=== PATIENT | male | born 1995 | race Caucasian/White ===

== ENCOUNTER 2019-05-05 10:59 | Emergency (ER) | payer OTHER, SELFPAY ==
[2019-05-05 11:09] VITALS: BP 132/90; PULSE 80; RESP 14; TEMP 36.6; O2SAT 97
[2019-05-05] MEDS: TRIMETH/SULFA 160/800 (DS) TABLET 1 TAB PO (12:26)
[2019-05-05] MEDS: IBUPROFEN 400 MG TABLET 800 MG PO (12:26)
[2019-05-05] MEDS: BACITRACIN OINT 0.9 GM PCKT 1 APPLIC TOP (12:26)
[2019-05-05 12:31] VITALS: BP 123/57; PULSE 70; RESP 18; O2SAT 98
--- NOTE | 2019-05-06 01:04 | ED.SKABFB ---
HPI - Skin/Abscess/Foreign Bdy <GIL Schuler - Last Filed: 05/06/19 01:17> General Chief complaint: Skin/Abscess/Foreign Body Stated complaint: SCRATCHED HAND/SENT BY EMPLOYER Time Seen by Provider: 05/05/19 12:11 Source: patient Mode of arrival: ambulatory Limitations: no limitations History of Present Illness HPI narrative: This is a 23-year-old male, smoker, active [employer] [place] [employer] member presents with significant other with bilateral hand multiple superficial abrasions. Patient states he has a history of anxiety and with this he scratches is dorsal hands. The patient reports discomfort, swelling, redness bilateral hands. He denies fever/chills, nausea, vomiting. Patient attempted to be seen at medical this morning but there was no available openings for him and he was referred to emergency room. His tetanus immunization is up-to-date. He current knee sees a counselor for anxiety [facility]. Related Data Previous Rx's Medication Instructions Recorded sulfamethoxazole-trimethoprim 1 tab PO BID 5 Days #10 tab 05/05/19 Allergies Allergy/AdvReac Type Severity Reaction Status Date / Time No Known Drug Allergies Allergy Verified 05/05/19 11:11 Review of Systems <GIL Schuler - Last Filed: 05/06/19 01:17> Review of Systems ROS Unobtainable: All systems reviewed & are unremarkable except as noted in HPI and below PFSH <GIL Schuler - Last Filed: 05/06/19 01:17> Medical History Anxiety (Acute) History of wrist fracture (Chronic) Surgical History H/O wrist surgery (Chronic) Social History Smoking Status: Current every day smoker Social History Smoking Status: Current every day smoker Exam <GIL Schuler - Last Filed: 05/06/19 01:17> Narrative Exam Narrative: General appearance: well developed, well nourished, in no acute distress. Head: normocephalic, atraumatic, no scalp lesions, non-tender. Eye: pupil equal, round. EOMI. Nose: nares patent. Oral: mucosa moist. Neck/Thyroid: neck supple, full range of motion, no visible masses. Skin: no suspicious rashes over visible areas. Warm and dry. Heart: S1, S2 with RRR. no clubbing, no cyanosis, no edema. Lungs: Lung sounds clear to auscultate bilaterally. Breathing even and unlabored. No stridor. No accessory muscles used. Chest: normal shape and expansion. Abdomen: non-obese, non-distended. Neurologic: alert and oriented. 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 Psych: good eye contact, normal affect. Initial Vital Signs Initial Vital Signs: Vital Signs Temperature 97.9 F 05/05/19 11:09 Pulse Rate 80 05/05/19 11:09 Respiratory Rate 14 05/05/19 11:09 Blood Pressure 132/90 05/05/19 11:09 Pulse Oximetry 97 05/05/19 11:09 Extrem Right upper extremity: hand Details: abnormal to inspection, normal capillary refill, neuromotor exam normal, neurosensory exam normal, tendon exam normal, tenderness, vascular exam Details: radial pulse present and normal capillary refill, normal ROM of fingers, warmth, swelling (greater in R hand) and abrasion (multiple superficial) Location: of the dorsal hand Left upper extremity: hand Details: abnormal to inspection, normal capillary refill, neuromotor exam normal, neurosensory exam normal, tendon exam normal, tenderness, vascular exam Details: radial pulse present, normal ROM of fingers, warmth, swelling and abrasion <Nenita Thornton DO - Last Filed: 05/08/19 07:37> Initial Vital Signs Initial Vital Signs: Vital Signs Temperature 97.9 F 05/05/19 11:09 Pulse Rate 80 05/05/19 11:09 Respiratory Rate 14 05/05/19 11:09 Blood Pressure 132/90 05/05/19 11:09 Pulse Oximetry 97 05/05/19 11:09 Course <GIL Schuler - Last Filed: 05/06/19 01:17> Orders Ordered: Discontinued Medications Bacitracin (Bacitracin) 1 applic TOP NOW ONE Stop: 08/21/19 12:19 Last Admin: 05/05/19 12:26 Dose: 1 applic Ibuprofen (Advil) 800 mg PO NOW ONE Stop: 05/05/19 12:19 Last Admin: 05/05/19 12:26 Dose: 800 mg Trimethoprim/Sulfamethoxazole (Bactrim Ds) 1 tab PO NOW ONE Stop: 05/05/19 12:19 Last Admin: 05/05/19 12:26 Dose: 1 tab <Nenita Thornton DO - Last Filed: 05/08/19 07:37> Orders Ordered: Discontinued Medications Bacitracin (Bacitracin) 1 applic TOP NOW ONE Stop: 05/05/19 12:19 Last Admin: 05/05/19 12:26 Dose: 1 applic Ibuprofen (Advil) 800 mg PO NOW ONE Stop: 05/05/19 12:19 Last Admin: 05/05/19 12:26 Dose: 800 mg Trimethoprim/Sulfamethoxazole (Bactrim Ds) 1 tab PO NOW ONE Stop: 05/05/19 12:19 Last Admin: 05/05/19 12:26 Dose: 1 tab MDM - Skin/Abscess/Foreign Bdy <GIL Schuler - Last Filed: 05/06/19 01:17> Differential Diagnosis Likely cellulitis Medical Records Attestation: I reviewed the patient's medical records. MDM Narrative Medical decision making narrative: The patient's physical exam is consistent with cellulitis bilateral dorsum hand from multiple superficial abrasions. Right hand is worse with swelling and redness and has more scratch lake. Patient reports he scratches his hand when he is anxious. Patient was medicated with Bactrim DS hand DC to home with remaining duration. Patient was medicated with ibuprofen for pain. Patient advised to follow with his medical in 2-3 days for recheck his wound. Wound care was done prior DC to home with topical antibiotic medication after cleaned with Hibiclens. Return precautions were discussed with patient and patient agrees with treatment plan and no further questions were expressed. Patient advised to continue with counseling services. Discharge Plan Departure Patient Disposition: Home Clinical Impression: Cellulitis Qualifiers: Site of cellulitis: extremity Site of cellulitis of extremity: upper extremity Laterality: unspecified laterality Qualified Code(s): L03.119 - Cellulitis of unspecified part of limb Discharge Date/Time: 05/05/19 12:50 Interventions: ED Discharge Assessment Last Done: 05/05/19 12:50 Instructions: DI for Cellulitis -- Adult Activity Restrictions/Additional Instructions: You have been diagnosed with [cellulitis on bilateral dorsum aspect hand. Please keep the area clean and dry. You can continue to use [id number] antibiotic ointment. You are given 1st dose of antibiotic medication prior DC to home. Please continue seeking counseling service for the anxiety]. What to do: *Take your medications as directed. Please complete a course of antibiotic medication unless this gives you an allergic reaction. He can take [id number] Tylenol or Motrin as needed for pain. *Follow up with your primary care provider in 2-3 days, call for an appointment. Let them know you were seen in the ED and that we asked you to be seen in follow up. *Return to ED if you have any new, worsening, or concerning symptoms, such as [increasing pain, swelling, fever, warmth, redness, chest pain, breathing difficulty, unable to tolerate fluids, any acute concerns]. Prescriptions: New sulfamethoxazole-trimethoprim 800-160 mg tablet 1 tab PO BID 5 Days Qty: 10 RF: 0 Referrals: [facility] [Outside] <Nenita Thornton DO - Last Filed: 05/08/19 07:37> [place] ED Attending [place] Attestation: I was immediately available in the department for consultation. Documentation has been reviewed. I agree with assessment and plan.
--- NOTE | 2019-05-06 01:17 | ED_ITS ---
HPI - Skin/Abscess/Foreign Bdy <GIL Schuler - Last Filed: 05/06/19 01:17> General Chief complaint: Skin/Abscess/Foreign Body Stated complaint: SCRATCHED HAND/SENT BY EMPLOYER Time Seen by Provider: 05/05/19 12:11 Source: patient Mode of arrival: ambulatory Limitations: no limitations History of Present Illness HPI narrative: This is a 23-year-old male, smoker, active [place] member presents with significant other with bilateral hand multiple superficial abrasions. Patient states he has a history of anxiety and with this he scratches is dorsal hands. The patient reports discomfort, swelling, redness bilateral hands. He denies fever/chills, nausea, vomiting. Patient attempted to be seen at medical this morning but there was no available openings for him and he was referred to emergency room. His tetanus immunization is up-to-date. He current knee sees a counselor for anxiety [facility]. Related Data Previous Rx's Medication Instructions Recorded sulfamethoxazole-trimethoprim 1 tab PO BID 5 Days #10 tab 05/05/19 Allergies Allergy/AdvReac Type Severity Reaction Status Date / Time No Known Drug Allergies Allergy Verified 05/05/19 11:11 Review of Systems <GIL Schuler - Last Filed: 05/06/19 01:17> Review of Systems ROS Unobtainable: All systems reviewed & are unremarkable except as noted in HPI and below PFSH <GIL Schuler - Last Filed: 05/06/19 01:17> Medical History Anxiety (Acute) History of wrist fracture (Chronic) Surgical History H/O wrist surgery (Chronic) Social History Smoking Status: Current every day smoker Social History Smoking Status: Current every day smoker Exam <GIL Schuler - Last Filed: 05/06/19 01:17> Narrative Exam Narrative: General appearance: well developed, well nourished, in no acute distress. Head: normocephalic, atraumatic, no scalp lesions, non-tender. Eye: pupil equal, round. EOMI. Nose: nares patent. Oral: mucosa moist. Neck/Thyroid: neck supple, full range of motion, no visible masses. Skin: no suspicious rashes over visible areas. Warm and dry. Heart: S1, S2 with RRR. no clubbing, no cyanosis, no edema. Lungs: Lung sounds clear to auscultate bilaterally. Breathing even and unlabored. No stridor. No accessory muscles used. Chest: normal shape and expansion. Abdomen: non-obese, non-distended. Neurologic: alert and oriented. 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 Psych: good eye contact, normal affect. Initial Vital Signs Initial Vital Signs: Vital Signs Temperature 97.9 F 05/05/19 11:09 Pulse Rate 80 05/05/19 11:09 Respiratory Rate 14 05/05/19 11:09 Blood Pressure 132/90 05/05/19 11:09 Pulse Oximetry 97 05/05/19 11:09 Extrem Right upper extremity: hand Details: abnormal to inspection, normal capillary refill, neuromotor exam normal, neurosensory exam normal, tendon exam normal, tenderness, vascular exam Details: radial pulse present and normal capillary refill, normal ROM of fingers, warmth, swelling (greater in R hand) and abrasion (multiple superficial) Location: of the dorsal hand Left upper extremity: hand Details: abnormal to inspection, normal capillary refill, neuromotor exam normal, neurosensory exam normal, tendon exam normal, tenderness, vascular exam Details: radial pulse present, normal ROM of fingers, warmth, swelling and abrasion <Nenita Thornton DO - Last Filed: 05/08/19 07:37> Initial Vital Signs Initial Vital Signs: Vital Signs Temperature 97.9 F 05/05/19 11:09 Pulse Rate 80 05/05/19 11:09 Respiratory Rate 14 05/05/19 11:09 Blood Pressure 132/90 05/05/19 11:09 Pulse Oximetry 97 05/05/19 11:09 Course <GIL Schuler - Last Filed: 05/06/19 01:17> Orders Ordered: Discontinued Medications Bacitracin (Bacitracin) 1 applic TOP NOW ONE Stop: 08/21/19 12:19 Last Admin: 05/05/19 12:26 Dose: 1 applic Ibuprofen (Advil) 800 mg PO NOW ONE Stop: 05/05/19 12:19 Last Admin: 05/05/19 12:26 Dose: 800 mg Trimethoprim/Sulfamethoxazole (Bactrim Ds) 1 tab PO NOW ONE Stop: 05/05/19 12:19 Last Admin: 05/05/19 12:26 Dose: 1 tab <Nenita Thornton DO - Last Filed: 05/08/19 07:37> Orders Ordered: Discontinued Medications Bacitracin (Bacitracin) 1 applic TOP NOW ONE Stop: 05/05/19 12:19 Last Admin: 05/05/19 12:26 Dose: 1 applic Ibuprofen (Advil) 800 mg PO NOW ONE Stop: 05/05/19 12:19 Last Admin: 05/05/19 12:26 Dose: 800 mg Trimethoprim/Sulfamethoxazole (Bactrim Ds) 1 tab PO NOW ONE Stop: 05/05/19 12:19 Last Admin: 05/05/19 12:26 Dose: 1 tab MDM - Skin/Abscess/Foreign Bdy <GIL Schuler - Last Filed: 05/06/19 01:17> Differential Diagnosis Likely cellulitis Medical Records Attestation: I reviewed the patient's medical records. MDM Narrative Medical decision making narrative: The patient's physical exam is consistent with cellulitis bilateral dorsum hand from multiple superficial abrasions. Right hand is worse with swelling and redness and has more scratch lake. Patient reports he scratches his hand when he is anxious. Patient was medicated with Bactrim DS hand DC to home with remaining duration. Patient was medicated with ibuprofen for pain. Patient advised to follow with his medical in 2-3 days for recheck his wound. Wound care was done prior DC to home with topical antibiotic medication after cleaned with Hibiclens. Return precautions were discussed with patient and patient agrees with treatment plan and no further questions were expressed. Patient advised to continue with counseling services. Discharge Plan Departure Patient Disposition: Home Clinical Impression: Cellulitis Qualifiers: Site of cellulitis: extremity Site of cellulitis of extremity: upper extremity Laterality: unspecified laterality Qualified Code(s): L03.119 - Cellulitis of unspecified part of limb Discharge Date/Time: 05/05/19 12:50 Interventions: ED Discharge Assessment Last Done: 05/05/19 12:50 Instructions: DI for Cellulitis -- Adult Activity Restrictions/Additional Instructions: You have been diagnosed with [cellulitis on bilateral dorsum aspect hand. Please keep the area clean and dry. You can continue to use [id number] antibiotic ointment. You are given 1st dose of antibiotic medication prior DC to home. Please continue seeking counseling service for the anxiety]. What to do: *Take your medications as directed. Please complete a course of antibiotic medication unless this gives you an allergic reaction. He can take [id number]-[id number] Tylenol or Motrin as needed for pain. *Follow up with your primary care provider in 2-3 days, call for an appointment. Let them know you were seen in the ED and that we asked you to be seen in follow up. *Return to ED if you have any new, worsening, or concerning symptoms, such as [increasing pain, swelling, fever, warmth, redness, chest pain, breathing difficulty, unable to tolerate fluids, any acute concerns]. Prescriptions: New sulfamethoxazole-trimethoprim 800-160 mg tablet 1 tab PO BID 5 Days Qty: 10 RF: 0 Referrals: [facility] [Outside] <Nenita Thornton DO - Last Filed: 05/08/19 07:37> [place] ED Attending Zenobia Attestation: I was immediately available in the department for consultation. Documentation has been reviewed. I agree with assessment and plan.
== END 2019-05-05 12:50 | disposition home or self-care (01) ==
PROVIDERS: Emergency Provider Nurse Practitioner Family
DX: L03.113 Cellulitis of right upper limb (principal); L03.114 Cellulitis of left upper limb
CPT/HCPCS: 99282; 99283

== ENCOUNTER 2019-10-06 14:50 | Emergency (ER) | payer OTHER, SELFPAY ==
[2019-10-06 15:00] VITALS: BP 144/98; PULSE 81; RESP 16; TEMP 36.5; O2SAT 98
--- NOTE | 2019-10-06 15:02 | DI.RAD.S_ITS ---
PROCEDURE: XR SHOULDER RT MIN 2V INDICATIONS: pain/decreased rom no recent injury TECHNIQUE: A set of 3 views of the shoulder were acquired. COMPARISON: None. FINDINGS: Bones: No fractures or dislocations. No suspicious bony lesions. Visualized ribs appear intact. Soft tissues: No suspicious soft tissue calcifications. IMPRESSION: Normal for age, source of current pain symptoms is not seen. Dictated by: Naveed Nj M.D. on 10/06/2019 at 15:31 Approved by: Naveed Nj M.D. on 10/06/2019 at 15:31
--- NOTE | 2019-10-06 16:25 | PC.NURSE ---
patient unable to raise own right arm above shoulder. pt can use his left hand and pull the arm up over the head.
--- NOTE | 2019-10-06 18:12 | ED.UPPEXIN ---
HPI - Extremity Injury (Upper) General Chief Complaint: Extremity Injury, Upper Stated Complaint: right shoulder pain x2 wks, trouble moving Time Seen by Provider: 10/06/19 15:17 Source: patient Mode of arrival: Ambulatory Limitations: no limitations History of Present Illness HPI narrative: GENERAL: This is a well-nourished, well-developed patient, in mild distress. HEAD: Atraumatic. Normocephalic. No temporal or scalp tenderness. EYES: Pupils equal round and reactive. Extraocular motions intact. No scleral icterus. No injection or drainage. ENT: Nose without bleeding, purulent drainage or septal hematoma. Throat without erythema, tonsillar hypertrophy or exudate. Uvula midline. Airway patent. NECK: Trachea midline. No JVD or lymphadenopathy. Supple, nontender, no meningeal signs. CARDIOVASCULAR: Regular rate and rhythm without murmurs, gallops, or rubs. RESPIRATORY: Clear to auscultation. Breath sounds equal bilaterally. No wheezes, rales, or rhonchi. GASTROINTESTINAL: Abdomen soft, non-tender, nondistended. No hepato-splenomegaly, or palpable masses. No guarding. EXTREMITIES: No clubbing, cyanosis, or edema. No joint tenderness, effusion, or edema noted. BACK: Nontender without deformity or crepitance. No flank tenderness. NEURO: AOx3. SKIN: No rash or erythema. The patient is a 24-year-old male current smoker who denies pertinent medical history presents with a chief complaint of right shoulder pain. He states that he initially hurt his shoulder 3 years ago but never had imaging. He is unclear regarding his initial injury several years ago. He states that recently started hurting 2 weeks ago but denies any recurrence injury. He states he did not hurt himself 2 weeks ago and has been using Aleve for pain. He states that the pain is centered around the top of his shoulder and that he has decreased range of motion Related Data Previous Rx's Medication Instructions Recorded ketorolac 10 mg PO TID PRN #15 tab 10/06/19 Allergies Allergy/AdvReac Type Severity Reaction Status Date / Time No Known Drug Allergies Allergy Verified 05/05/19 11:11 Review of Systems Review of Systems Narrative: GENERAL: Denies chills, fatigue, malaise, fever, sweats. HEENT: Denies sinus pain, ear pain, sore throat, difficulty swallowing, dizziness. RESPIRATORY: Denies dyspnea, cough, wheezing, hemoptysis, sputum. CARDIOVASCULAR: Denies chest pain, palpitations, orthopnea, edema, GASTROINTESTINAL: Denies nausea, vomiting, abdominal pain, diarrhea, constipation, melena. : Denies dysuria, frequency, incontinence, hematuria, urinary retention. MUSCULOSKELETAL: See HPI SKIN: Denies rash, skin lesions, or other NEUROLOGIC: Denies weakness, headache, numbness, change in speech, confusion, seizures, incoordination. PSYCHIATRIC: No concerning psychosocial issues. 12 point review of systems is negative except for those stated above Patient History Medical History Anxiety (Acute) History of wrist fracture (Chronic) Surgical History H/O wrist surgery (Chronic) Social History Smoking Status: Current every day smoker Smoking Status: Current every day smoker alcohol intake frequency: 0-2 drinks per day Substance Use Type: does not use Exam Narrative Exam Narrative: GENERAL: This is a well-nourished, well-developed patient, in no acute distress HEAD: Atraumatic. Normocephalic. No temporal or scalp tenderness. EYES: Pupils equal round and reactive. Extraocular motions intact. No scleral icterus. No injection or drainage. ENT: Nose without bleeding, purulent drainage or septal hematoma. Throat without erythema, tonsillar hypertrophy or exudate. Uvula midline. Airway patent. NECK: Trachea midline. No JVD or lymphadenopathy. Supple, nontender, no meningeal signs. CARDIOVASCULAR: Regular rate and rhythm RESPIRATORY: No cough. No increased respiratory effort. No accessory muscle use. EXTREMITIES: General pain to palpation over right shoulder. Positive radial pulse right hand good strength right hand. Negative empty can test. Decreased extension of right shoulder, full range of motion passively. BACK: Nontender without deformity or crepitance. No flank tenderness. NEURO: AOx3. SKIN: No rash or erythema on visible skin. No erythema or ecchymosis noted on shoulder. Initial Vital Signs Initial Vital Signs: Vital Signs Temperature 97.7 F 10/06/19 15:00 Pulse Rate 81 10/06/19 15:00 Respiratory Rate 16 10/06/19 15:00 Blood Pressure 144/98 H 10/06/19 15:00 Pulse Oximetry 98 10/06/19 15:00 Course Orders Ordered: ED Orders 10/06/19 15:02 XR shoulder RT min 2V Stat Vital Signs Vital signs: Vital Signs - 8 hr 10/06/19 15:00 Temperature 97.7 F Pulse Rate 81 Respiratory Rate 16 Blood Pressure 144/98 H Pulse Oximetry 98 [facility] - Extremity Injury (Upper) Imaging Data Extremity x-ray #1: Radiologist's Impression: Vianey JOSE A [id number] XRay Report Signed Patient: Amanda Orosco#: [id number] : 1995Acct:[id number] Age/Sex: 24 / MDate of Service: 10/06/19 Loc: ED Accession Number: [id number] Procedure: XR shoulder RT min 2V Ordering Provider: Nenita Thornton D.O. PROCEDURE: XR SHOULDER RT MIN 2V INDICATIONS: pain/decreased rom no recent injury TECHNIQUE: A set of 3 views of the shoulder were acquired. COMPARISON: None. FINDINGS: Bones: No fractures or dislocations. No suspicious bony lesions. Visualized ribs appear intact. Soft tissues: No suspicious soft tissue calcifications. IMPRESSION: Normal for age, source of current pain symptoms is not seen. Dictated by: Naveed Nj M.D. on 10/06/2019 at 15:31 Approved by: Naveed Nj M.D. on 10/06/2019 at 15:31 [facility] Narrative Medical decision making narrative: The patient is a 24-year-old male presents with a chief complaint of right shoulder pain for few weeks. He has decreased range of motion on exam, raising concern for soft tissue injury. He has no acute findings on x-ray, is neurovascularly intact. I discussed that he may need physical therapy, repeat evaluation of possible repeat or further imaging. Encouraged him to follow up with primary care provider in the next few days and given contact information at [facility] health human resources psychologist. He also states that he can contact [facility]. He was given Toradol and I discussed at length not taking with Aleve or any other NSAIDs. Patient has no questions or concerns upon discharge and states understanding of return precautions as well as follow-up care. Discharge Plan Departure Patient Disposition: Home Clinical Impression: Acute pain of right shoulder Discharge Date/Time: 10/06/19 16:48 Instructions: How To Perform RICE (Rest, Ice, Compress, Elevate), DI for Shoulder Pain Activity Restrictions/Additional Instructions: As I discussed, your x-ray shows no acute fracture. This does not rule out a soft tissue injury such as a ligament or tendon injury. It is important that you follow up with primary care provider, especially if worsening or no improvement. There can be fractures that did not show up on initial x-ray. Please follow-up with primary care provider. You may need further imaging and/or physical therapy in the future. I've given you contact information for the [facility] human resources psychologist. You can also contact [facility] to help establish a primary care provider. I have given you a prescription of Toradol. This is an NSAID. Do not combine it with other NSAIDs such as Aleve or ibuprofen. I suggest taking it with some food, as it can irritate your stomach. Please come back to emergency department for any acute concerns. Prescriptions: New ketorolac 10 mg tablet 10 mg PO TID PRN (Reason: pain) Qty: 15 RF: 0 Referrals: [facility] [Outside]
== END 2019-10-06 16:48 | disposition home or self-care (01) ==
PROVIDERS: Emergency Provider Nurse Practitioner Family
DX: M25.511 Pain in right shoulder (principal)
CPT/HCPCS: 73030; 99283